=== PATIENT | female | born 1955 | race Caucasian/White ===

== ENCOUNTER → 2016-07-27 | Outpatient (CLI) | payer OTHER ==
--- NOTE | 2016-07-27 16:42 | DX ---
PA and Lateral Chest Indication: Fever Comparison: 2 view chest dated June 24, 2012 Findings: Lungs remain well aerated and clear. No pulmonary nodule, consolidation or effusion. The he art size is normal. Mild degenerative disk disease is unchanged. Impression: Clear lungs. No pneumonia.
== END ==
LOC: BMCIMAGING 15:12
PROVIDERS: ATTEND Physician Assistant Medical
DX: R50.9 Fever, unspecified (principal)

== ENCOUNTER 2016-09-15 13:40 | Inpatient (IN) | payer OTHER ==
--- NOTE | 2016-09-15 14:19 | EDPHY ---
H & P Time Seen by Provider: 09/15/16 14:12 HPI/ROS: Chief complaint. Foot infection HPI. A 61-year-old female with 10 year history of insulin-dependent diabetes has had infection to the bottom of the right foot for several weeks but over the past week it has gotten quite a bit worse. Maybe low-grade fever. Hurts to walk. It was initially a callus that got infected and now it has gotten quite a bit deeper. She still has seen Infectious Disease who would like an MRI admission. ROS Constitutional. Fever Eyes. no problems with vision ENT. no sore throat, no nasal drainage Cardiovascular. no chest pain Respiratory. no shortness of breath, no cough Abdominal. no abdominal pain, no nausea/vomiting, no diarrhea . no problems urinating MS. no calf pain/swelling, no neck/back pain, no joint pain Skin. Ulceration to the bottom of the great toe and arch of the right foot. Lymph. no swollen glands Neuro. no headache, no dizziness, no difficulty walking or with speech Past Medical/Surgical History: Past medical history significant for diabetes and asthma and hypertension Social History: , nonsmoker, no alcohol Smoking Status: Former smoker Physical Exam: General Appearance: Alert female mild distress vital signs stable. Afebrile Eyes: Pupils equal and round no pallor or injection. ENT, Mouth: Mucous membranes are moist. Respiratory: There are no retractions, lungs are clear to auscultation. Cardiovascular: Regular rate and rhythm. Gastrointestinal: Abdomen is soft and nontender, no masses, bowel sounds normal. Neurological: Awake and alert, sensory and motor exams grossly normal. Skin: Warm and dry, no rashes. Musculoskeletal: Neck is supple nontender. Extremities ulcerated, necrotic smelling lesion under the right great toe and to the plantar surface of the right foot. The great toe is quite erythematous. No obvious lymphangitis Psychiatric: Patient is oriented X 3, there is no agitation. Constitutional: Initial Vital Signs Temperature (C) 36.8 C 09/15/16 13:55 Heart Rate 80 09/15/16 13:55 Respiratory Rate 16 09/15/16 13:55 Blood Pressure 154/70 H 09/15/16 13:55 O2 Sat (%) 97 09/15/16 13:55 O2 Delivery Mode Room Air Allergies/Adverse Reactions: linezolid [From Zyvox] Allergy (Verified 03/12/10 12:45) RBC COUNT GOES DOWN lisinopril Allergy (Verified 09/15/16 13:59) Other-Enter Comments Home Medications: Medication Instructions Recorded Albuterol Sulfate [Albuterol 1 - 2 puffs IH Q4H 03/20/15 Inhaler Hfa] Folic Acid [Folic Acid 1 MG (*)] 1 mg PO DAILY 03/20/15 Glimepiride [Amaryl 2 MG (*)] 2 mg PO DAILY 03/20/15 Herbals/Supplements -Info Only 1 ea PO DAILY 03/20/15 Omeprazole [Prilosec 20 mg] 20 mg PO DAILY 03/20/15 Immun Glob G (IgG)/Gly/Iga 50+ 100 gm IV .Q3WKS 03/21/15 [Gamunex-C 10 Gram/100 ml Vial] Insulin Glargine [Lantus 100 55 units SC DAILY #1 btl 04/05/15 UNITS/ML (*)] Syringe [Syringe, Insulin] 90 syr SQ ACHS #90 ea 04/05/15 Bp Med 09/15/16 Medical Decision Making Procedures: Cultures obtained IV normal saline. Unasyn 3 g intravenously was given MRI ordered ED Course/Re-evaluation: I discussed the laboratory findings with the patient. She is already aware of the recommendation for admission. MRI result is still pending I consulted and discussed case with Dr. Osvaldo Lang, hospitalist, who agrees to the admission Differential Diagnosis: Cellulitis, lymphangitis, osteomyelitis in the patient with diabetes and foot ulcer - Data Points Laboratory Results: Laboratory Results 09/15/16 14:41 09/15/16 14:41 09/15/16 09/15/16 09/15/16 14:41 14:41 14:41 WBC 10.63 10^3/uL H 10^3/uL (3.80-9.50) RBC 3.82 10^6/uL L 10^6/uL (4.18-5.33) Hgb 10.9 g/dL L g/dL (12.6-16.3) Hct 32.5 % L % (38.0-47.0) MCV 85.1 fL fL (81.5-99.8) MCH 28.5 pg pg (27.9-34.1) MCHC 33.5 g/dL g/dL (32.4-36.7) RDW 14.6 % % (11.5-15.2) Plt Count 172 10^3/uL 10^3/uL (150-400) MPV 10.4 fL fL (8.7-11.7) Neut % (Auto) 70.6 % % (39.3-74.2) Lymph % (Auto) 20.3 % % (15.0-45.0) [place] % (Auto) 5.6 % % (4.5-13.0) Eos % (Auto) 2.1 % % (0.6-7.6) Baso % (Auto) 0.5 % % (0.3-1.7) Nucleat RBC Rel Count 0.0 % % (0.0-0.2) Absolute Neuts (auto) 7.51 10^3/uL H 10^3/uL (1.70-6.50) Absolute Lymphs (auto) 2.16 10^3/uL 10^3/uL (1.00-3.00) Absolute Monos (auto) 0.59 10^3/uL 10^3/uL (0.30-0.80) Absolute Eos (auto) 0.22 10^3/uL 10^3/uL (0.03-0.40) Absolute Basos (auto) 0.05 10^3/uL 10^3/uL (0.02-0.10) Absolute Nucleated RBC 0.00 10^3/uL 10^3/uL (0-0.01) Immature Gran % 0.9 % % (0.0-1.1) Immature Gran # 0.10 10^3/uL 10^3/uL (0.00-0.10) ESR 105 MM/HR H MM/HR (0-30) PT 14.4 SEC SEC (12.0-15.0) INR 1.13 (0.83-1.16) APTT 25.1 SEC SEC (23.0-38.0) VBG Lactic Acid Sodium 135 mEq/L mEq/L (134-144) Potassium 4.5 mEq/L mEq/L (3.5-5.2) Chloride 102 mEq/L mEq/L (97-110) Carbon Dioxide 21 mEq/l L mEq/l (22-31) Anion Gap 12 mEq/L mEq/L (8-16) BUN 18 mg/dL mg/dL (7-23) Creatinine 0.9 mg/dL mg/dL (0.6-1.0) Estimated GFR > 60 Glucose 299 mg/dL H mg/dL (70-100) Calcium 10.7 mg/dL H mg/dL (8.5-10.4) Phosphorus Pending Total Bilirubin 2.3 mg/dL H mg/dL (0.1-1.4) Conjugated Bilirubin Pending Unconjugated Bilirubin Pending C-Reactive Protein 30.0 mg/L H mg/L (<10.0) 09/15/16 14:41 WBC RBC Hgb Hct MCV MCH MCHC RDW Plt Count MPV Neut % (Auto) Lymph % (Auto) [place] % (Auto) Eos % (Auto) Baso % (Auto) Nucleat RBC Rel Count Absolute Neuts (auto) Absolute Lymphs (auto) Absolute Monos (auto) Absolute Eos (auto) Absolute Basos (auto) Absolute Nucleated RBC Immature Gran % Immature Gran # ESR PT INR APTT VBG Lactic Acid 1.8 mmol/L mmol/L (0.7-2.1) Sodium Potassium Chloride Carbon Dioxide Anion Gap BUN Creatinine Estimated GFR Glucose Calcium Phosphorus Total Bilirubin Conjugated Bilirubin Unconjugated Bilirubin C-Reactive Protein Departure - Departure Disposition: Foottnlls Inpatient Acute Clinical Impression: Osteomyelitis Qualifiers: Osteomyelitis type: unspecified type Osteomyelitis location: foot Laterality: right Qualified Code(s): M86.9 - Osteomyelitis, unspecified Condition: Fair Referrals: Eliana Fowler PA [Primary Care Provider] - As per Instructions
[2016-09-15] MEDS ORDERED: AMPICILLIN/SULBACTAM 3 GM in NS 100 ML IV ONE (14:42)
[2016-09-15 14:52] LABS: % IMMATURE GRANULYOCYTES 0.9 % (0.0-1.1); ADD DIFF? NO; ADD MORPH? NO; ADD SCAN? NO; ATYPICAL LYMPHOCYTE FLAG 20 (0-99); FRAGMENT RBC FLAG 0 (0-99); HEMATOCRIT 32.5 % (38.0-47.0); HEMOGLOBIN 10.9 g/dL (12.6-16.3); LEFT SHIFT FLG 0 (0-99); LIPEMIA HEMOLYSIS FLAG 80 (0-99); MEAN CELL HEMOGLOBIN 28.5 pg (27.9-34.1); MEAN CELL HEMOGLOBIN CONCENTR. 33.5 g/dL (32.4-36.7); MEAN CELL VOLUME 85.1 fL (81.5-99.8); MEAN PLATELET VOLUME 10.4 fL (8.7-11.7); PLATELET CLUMPS FLAG 10 (0-99); PLATELET COUNT 172 10^3/uL (150-400); RED BLOOD CELL COUNT 3.82 10^6/uL (4.18-5.33); RED CELL DISTRIBUTION WIDTH 14.6 % (11.5-15.2)
[2016-09-15 15:04] LABS: INR 1.13 (0.83-1.16); PROTIME(PATIENT) 14.4 SEC (12.0-15.0)
[2016-09-15 15:05] LABS: APTT 25.1 SEC (23.0-38.0)
[2016-09-15 15:18] LABS: ANION GAP 12 mEq/L (8-16); BILIRUBIN,TOTAL 2.3 mg/dL (0.1-1.4); CALCIUM 10.7 mg/dL (8.5-10.4); CARBON DIOXIDE 21 mEq/l (22-31); CHLORIDE 102 mEq/L (97-110); CREATININE 0.9 mg/dL (0.6-1.0); GLOMERULAR FILTRATION RATE > 60; GLUCOSE 299 mg/dL (70-100); POTASSIUM 4.5 mEq/L (3.5-5.2); SODIUM 135 mEq/L (134-144)
[2016-09-15 15:20] LABS: SEDIMENTATION RATE 105 MM/HR (0-30)
[2016-09-15 15:37] LABS: BILIRUBIN-CONJUGATED 0.7 mg/dL (0.0-0.5); BILIRUBIN-UNCONJUGATED 1.6 mg/dL (0.0-1.1)
--- NOTE | 2016-09-15 16:15 | PCMIDPN ---
Assessment/Plan: # Acute R Diabetic foot infection with wound of 2nd MTP tracking 4 cm, wound on dorsum of foot, several other wounds on 2nd toe all with associated cellulitis of 2nd toe + dorsum of foot and swelling up to ankle. Concern for underlying OM , myositis. No H/o MRSA. --Wound cx taken by me in clinic --MRI --blood cultures --Unasyn 3gm IV q6h to cover SA, strep, some GNR and anaerobes. No h/o MRSA. Duration of therapy unknown awaiting further info. --Dr. Pastrana consulted. 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 Objective: Vital Signs Temp Pulse Resp BP Pulse Ox 36.8 C 80 16 154/70 H 97 09/15/16 13:55 09/15/16 13:55 09/15/16 13:55 09/15/16 13:55 09/15/16 13:55 ESR 105 MM/HR (0-30) H 09/15/16 14:41 C-Reactive Protein 30.0 mg/L (<10.0) H 09/15/16 14:41 ICD10 Worksheet Patient Problems: Problems Problem Status Onset Osteomyelitis Acute Acute kidney injury Acute Diabetes mellitus Acute Hypogammaglobulinemia Acute Hyponatremia Acute Invasive fungal sinusitis Acute Mucormycosis rhinosinusitis Acute Sinusitis Acute
[2016-09-15] MEDS ORDERED: GADOBUTROL 10 ML VIAL IVP ONE (16:36)
[2016-09-15] MEDS ORDERED: ALTEPLASE 2 MG VIAL IVP PRN ×2 (18:16→18:20)
[2016-09-15 19:21] LABS: HEMOGLOBIN A1C 6.9 % (4.0-6.0)
[2016-09-15] MEDS ORDERED: BUPIVACAINE 0.5% 30 ML SDV ONE (20:12)
[2016-09-15] MEDS ORDERED: PROPOFOL/EMULSION 500 MG/50 ML BOTTLE IV ONE (20:19)
[2016-09-15] MEDS ORDERED: fentaNYL 100 MCG/2 ML INJ ONE ×3 (20:20→21:51)
[2016-09-15] MEDS ORDERED: MIDAZOLAM 2 MG/2 ML VIAL ONE (20:20)
--- NOTE | 2016-09-15 21:04 | GCON ---
[f rep st] CONSULTATION DATE OF CONSULTATION: 09/15/2016 REQUESTING PHYSICIAN: Lorri Harper MD. CHIEF COMPLAINT: Osteomyelitis right foot. HISTORY OF PRESENT ILLNESS: The patient is a 61-year-old woman who has had a wound on her foot for which she has been evaluated. However, over the past 4 or 5 days it has become progressively worse until today when there was massive erythema and purulence from the wound. She had an MRI obtained w the [facility] showed osteomyelitis of the 2nd metatarsal as well as probable 3rd metatarsal. PAST MEDICAL HISTORY: 1. Insulin-dependent diabetes mellitus. 2. 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 3. History of rhinosinusitis. 4. Acute kidney injury. 5. Hyperparathyroidism. 6. Hypertension. 7. Hyperlipidemia. 8. Gastroesophageal reflux disease. PAST SURGICAL HISTORY: Sinus surgery x2, foot surgery x4, hysterectomy, exploratory laparotomy, lef t foot surgery, lung biopsy MEDICATIONS: Home medications have not yet been reconciled. ALLERGIES: Linezolid, Lisinopril. SOCIAL HISTORY: She does not use tobacco, alcohol, or drugs. FAMILY HISTORY: Significant for diabetes and renal disease. REVIEW OF SYSTEMS: 10-point review of systems was otherwise negative. PHYSICAL EXAM: VITAL SIGNS: 36.8, 87, 128/58, 20, 98% on room air. GENERAL: Pleasant, well-arvind shed, well-groomed, woman sitting up in bed. HEENT: Normocephalic. No gross hearing deficits. Mu cous membranes moist. Pupils equal and round. No scleral icterus. LUNGS: Clear to auscultation b ilaterally. No increased work of breathing. CARDIAC: Systolic murmur. She does have a 2+ femoral pulse. SKIN: There is an obvious wound to the plantar surface of her right foot with an obvious i nfection of her 2nd toe. Her leg is edematous to the mid calf. I cannot palpate a pulse due to the edema over the dorsum of her foot. RESULTS REVIEWED: I personally reviewed the results of her MRI. Her great toe is absent. She has osteomyelitis of the 2nd and 3rd metatarsals. IMPRESSION: The patient is a 61-year-old woman with osteomyelitis of the 2nd and 3rd metatarsal. I will take her to the operating room for transmetatarsal amputation. We did talk about a gastroc rel ease. The risks and benefits, including, but not limited to, continued infection, bleeding, need fo r additional procedures, possible wound VAC, and prolonged antibiotics, were all discussed. She had her questions answered to her satisfaction and signed the informed consent. /[id number]/MODL
--- NOTE | 2016-09-15 21:40 | POSTOPPROG ---
Post Op Note Date of Operation: 09/15/16 Surgeon: Eliana Pastrana Anesthesiologist: casey Anesthesia: GET(General Endotracheal) Pre-op Diagnosis: right foot osteomylitis Post-op Diagnosis: same Indication: 61 yo with osteomylitis Procedure: right gastrot recession, tma right foot Inf/Abcess present in the surg proc area at time of surgery?: Yes Depth: Deep Incisional (Fascial) EBL: 100-500 Drains: Wound Vac Specimen(s): forefoot
[2016-09-15] MEDS ORDERED: HYDROmorphONE/DILAUDID 1 MG/ML SYR ONE (22:14)
[2016-09-15] MEDS: AMPICILLIN/SULBACTAM 3 GM in NS 100 ML IV SCH (22:57)
[2016-09-15] MEDS ORDERED: NS BOLUS 1000 ML (Wide open) IV ONE (23:00)
[2016-09-16] MEDS: HYDROCODONE/APAP 5/325 TAB PO PRN ×2 (00:03→08:28)
[2016-09-16] MEDS ORDERED: ALBUTEROL 3 ML DEYVIAL IH PRN (00:11)
[2016-09-16] MEDS ORDERED: ACETAMINOPHEN 325 MG TAB PO PRN (00:11)
[2016-09-16] MEDS ORDERED: ONDANSETRON DISINTEGRATING 4 MG TAB PO PRN (00:11)
[2016-09-16] MEDS ORDERED: ONDANSETRON 4 MG/2 ML VIAL IVP PRN (00:11)
[2016-09-16] MEDS ORDERED: FLUTICASONE/SALMETER 250/50MCG DISKUS IH PRN (00:13)
[2016-09-16] MEDS ORDERED: D50W 25 GM/50 ML SYR IVP PRN (00:47)
[2016-09-16] MEDS: AMPICILLIN/SULBACTAM 3 GM in NS 100 ML IV SCH ×4 (02:32→20:24)
--- NOTE | 2016-09-16 02:32 | PDGENHP ---
History and Physical - Chief Complaint R foot pain - History of Present Illness Patient was seen and evaluated on 09/15/2016. Patient is a 61-year-old female with dm 2 on insulin, complicated by peripheral neuropathy and multiple infections of her feet, hypertension, CVID, asthma who presents to the ED with acute on chronic R foot edema and erythema. patient reports that a callus has been present on the bottom of her right foot for several weeks, however about 3 or 4 days ago her foot became acutely swollen and edematous. Patient does not have significant sensation in her foot, so was not overly painful, but she was having difficulty walking on it. In addition she reported subjective chills, without obvious fever. She was evaluated by her ID doctor Dr. Harper, and was directed to the ED for evaluation for osteomyelitis. Patient denies any recent travel, chest pain, palpitations, shortness of breath, cough, abdominal pain, nausea, vomiting, diarrhea or dysuria. She has had previous right great toe amputation due to infection. On arrival to the ED patient was afebrile hemodynamically stable. Labs revealed mild leukocytosis, hyperglycemia, normal BMP. MRI of the foot revealed osteomyelitis involving the 2nd/3rd metatarsal and phalanges of the 2nd toe with infiltrating abscess. surgery was consulted and patient was taken to the OR for debridement of her foot. On my evaluation patient is postop, reports no significant pain to her foot. ID has been consulted and patient was cultured and initiated on Unasyn. History Information - Allergies/Home Medication List Allergies/Adverse Reactions: linezolid [From Zyvox] Allergy (Verified 03/12/10 12:45) RBC COUNT GOES DOWN lisinopril Allergy (Verified 09/15/16 13:59) Other-Enter Comments Home Medications: Albuterol Sulfate [Albuterol Inhaler Hfa] 1 - 2 puffs IH Q4H 03/20/15 [Last Taken 09/15/16] Folic Acid [Folic Acid 1 MG (*)] 1 mg PO DAILY 03/20/15 [Last Taken 09/15/16] Glimepiride [Amaryl 2 MG (*)] 2 mg PO DAILY 03/20/15 [Last Taken 09/14/16] Herbals/Supplements -Info Only 1 ea PO DAILY 03/20/15 [Last Taken Unknown] Omeprazole [Prilosec 20 mg] 20 mg PO DAILY 03/20/15 [Last Taken 09/15/16] Immun Glob G (IgG)/Gly/Iga 50+ [Gamunex-C 10 Gram/100 ml Vial] 60 gm IV .Q3WKS 03/21/15 [Last Taken 09/06/16] Fluticasone/Salmeter 250/50Mcg [Advair 250/50 (*)] 1 puffs IH BID PRN 09/15/16 [ Last Taken 09/08/16] Losartan/Hydrochlorothiazide [Hyzaar 100-12.5 Tablet] 1 each PO DAILY 09/15/16 [ Last Taken 09/15/16] I have personally reviewed and updated: family history, medical history, social history, surgical history - Past Medical History Additional medical history: dm 2 on insulin, complicated by peripheral neuropathy and multiple infections of her feet, hypertension, CVID, asthma, Chronic anemia, hypoparathyroidism, h/o rhizopus infection of R maxillary sinus - Surgical History Additional surgical history: right great toe amputation, transmetatarsal amputation, multiple debridements of foot wounds, sinus debridement, tonsillectomy, hysterectomy - Family History Positive for: diabetes type II - Social History Smoking Status: Former smoker (quit >30 years ago) Alcohol Use: None Drug Use: None Additional social history: Patient lives with her , 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 Review of Systems ROS: 10pt was reviewed & negative except for what was stated in HPI & below Physical Exam Temp Pulse Resp BP Pulse Ox 36.6 C 82 16 102/51 L 97 09/16/16 00:39 09/16/16 00:39 09/16/16 00:39 09/16/16 00:39 09/16/16 00:39 O2 (L/minute) 2 Constitutional: no apparent distress, appears nourished, not in pain Eyes: PERRL, anicteric sclera, EOMI Ears, Nose, Mouth, Throat: moist mucous membranes, hearing normal, ears appear normal, no oral mucosal ulcers Cardiovascular: regular rate and rhythym, no murmur, rub, or gallop, edema (of RLE 1-2+), No JVD Peripheral Pulses: 2+: dorsalis-pedis (L) Respiratory: no respiratory distress, no rales or rhonchi, clear to auscultation Gastrointestinal: normoactive bowel sounds, soft, non-tender abdomen, no palpable masses, No guarding, No rebound, No distension Genitourinary: no bladder fullness, no bladder tenderness Skin: other (R foot in wound vac with surrounding warmth and edema; R upper extremity PICC) Musculoskeletal: full muscle strength, no muscle tenderness, normal joint ROM, no joint effusions Neurologic: AAOx3, sensation intact bilaterally, CN II-XII Intact, No weakness, No numbness Psychiatric: interacting appropriately, not anxious, not encephalopathic, thought process linear Lab Data & Imaging Review 09/16/16 06:30 09/16/16 05:10 WBC 10.63 10^3/uL (3.80-9.50) H 09/15/16 14:41 RBC 3.82 10^6/uL (4.18-5.33) L 09/15/16 14:41 Hgb 10.9 g/dL (12.6-16.3) L 09/15/16 14:41 Hct 32.5 % (38.0-47.0) L 09/15/16 14:41 MCV 85.1 fL (81.5-99.8) 09/15/16 14:41 MCH 28.5 pg (27.9-34.1) 09/15/16 14:41 MCHC 33.5 g/dL (32.4-36.7) 09/15/16 14:41 RDW 14.6 % (11.5-15.2) 09/15/16 14:41 Plt Count 172 10^3/uL (150-400) 09/15/16 14:41 MPV 10.4 fL (8.7-11.7) 09/15/16 14:41 Neut % (Auto) 70.6 % (39.3-74.2) 09/15/16 14:41 Lymph % (Auto) 20.3 % (15.0-45.0) 09/15/16 14:41 [place] % (Auto) 5.6 % (4.5-13.0) 09/15/16 14:41 Eos % (Auto) 2.1 % (0.6-7.6) 09/15/16 14:41 Baso % (Auto) 0.5 % (0.3-1.7) 09/15/16 14:41 Nucleat RBC Rel Count 0.0 % (0.0-0.2) 09/15/16 14:41 Absolute Neuts (auto) 7.51 10^3/uL (1.70-6.50) H 09/15/16 14:41 Absolute Lymphs (auto) 2.16 10^3/uL (1.00-3.00) 09/15/16 14:41 Absolute Monos (auto) 0.59 10^3/uL (0.30-0.80) 09/15/16 14:41 Absolute Eos (auto) 0.22 10^3/uL (0.03-0.40) 09/15/16 14:41 Absolute Basos (auto) 0.05 10^3/uL (0.02-0.10) 09/15/16 14:41 Absolute Nucleated RBC 0.00 10^3/uL (0-0.01) 09/15/16 14:41 Immature Gran % 0.9 % (0.0-1.1) 09/15/16 14:41 Immature Gran # 0.10 10^3/uL (0.00-0.10) 09/15/16 14:41 ESR 105 MM/HR (0-30) H 09/15/16 14:41 PT 14.4 SEC (12.0-15.0) 09/15/16 14:41 INR 1.13 (0.83-1.16) 09/15/16 14:41 APTT 25.1 SEC (23.0-38.0) 09/15/16 14:41 VBG Lactic Acid 1.8 mmol/L (0.7-2.1) 09/15/16 14:41 Sodium 135 mEq/L (134-144) 09/15/16 14:41 Potassium 4.5 mEq/L (3.5-5.2) 09/15/16 14:41 Chloride 102 mEq/L (97-110) 09/15/16 14:41 Carbon Dioxide 21 mEq/l (22-31) L 09/15/16 14:41 Anion Gap 12 mEq/L (8-16) 09/15/16 14:41 BUN 18 mg/dL (7-23) 09/15/16 14:41 Creatinine 0.9 mg/dL (0.6-1.0) 09/15/16 14:41 Estimated GFR > 60 09/15/16 14:41 Glucose 299 mg/dL (70-100) H 09/15/16 14:41 Hemoglobin A1c 6.9 % (4.0-6.0) H D 09/15/16 14:41 Estim Average Glucose 151 mg/dL (68-126) H 09/15/16 14:41 Calcium 10.7 mg/dL (8.5-10.4) H 09/15/16 14:41 Phosphorus 2.3 mg/dL (2.5-4.5) L 09/15/16 14:41 Total Bilirubin 2.3 mg/dL (0.1-1.4) H 09/15/16 14:41 Conjugated Bilirubin 0.7 mg/dL (0.0-0.5) H 09/15/16 14:41 Unconjugated Bilirubin 1.6 mg/dL (0.0-1.1) H 09/15/16 14:41 C-Reactive Protein 30.0 mg/L (<10.0) H 09/15/16 14:41 Visualized and Interpreted imaging results: Yes Interpretation: MRI R Lower extremity: osteomyelitis involving the 2nd/3rd metatarsal and phalanges of the 2nd toe with infiltrating abscess Assessment & Plan Assessment: patient is a 61-year-old female with a history of DM 2, on insulin, complicated by multiple foot infections with previous right great toe amputation who presents to the ED with complaint of increasing warmth, edema and erythema of her right foot. MRI reveals acute osteomyelitis of the 2nd and 3rd metatarsals with as well as infiltrating abscess. Patient is now status post surgical debridement and has been initiated on antibiotic therapy. Osteomyelitis (Acute) Plan: # acute osteomyelitis Patient's right foot wound has been complicated by acute osteomyelitis of the 2nd and 3rd metatarsal with abscess formation tracking proximally 4 cm. Labs and presenting VS do not reveal evidence of sepsis. Now s/p surgical debridement. Will f/u wound culture taken in the outpatient setting, as well as blood cultures obtained in the ED. ID recommendations appreciated. WIll cont Unasyn 3 q6h and f/u culture results. # hyperglycemia, insulin-dependent DM2 Blood glucose on admission BMP is elevated at 200. Will place on sliding scale coverage and continue patient's home lantus. HbA1C is 6.9%. # CVID IgG level was checked, result is pending. Will assess need for additional IgG in setting of acute infection depending on level. # chronic hypertension BP slightly low on presentation, in setting of acute infection/surgical procedure. Will monitor BP and restart home meds as needed. # chronic anemia H/H appear to be at patient's previous baseline. Will cont to monitor. # asthma Respiratory status stable. WIll provide neb prn # hyperparathyroidism Ca is elevated and Phos is low, consistent with patient's diagnosis of hyperparathyroidism. Will cont to monitor levels and treat if significant deranged. # dispo: admit to inpatient service for likely > 2 [place] stay # gen: diabetic diet DVT ppx: lovenox Full code
[2016-09-16 05:32] LABS: % IMMATURE GRANULYOCYTES 0.9 % (0.0-1.1); ABSOLUTE IMMATURE GRANULOCYTES 0.09 10^3/uL (0.00-0.10); ADD DIFF? NO; ADD MORPH? NO; ADD SCAN? NO; ATYPICAL LYMPHOCYTE FLAG 10 (0-99); FRAGMENT RBC FLAG 0 (0-99); HEMATOCRIT 22.4 % (38.0-47.0); HEMOGLOBIN 7.5 g/dL (12.6-16.3); LEFT SHIFT FLG 0 (0-99); LIPEMIA HEMOLYSIS FLAG 80 (0-99); MEAN CELL HEMOGLOBIN 28.3 pg (27.9-34.1); MEAN CELL HEMOGLOBIN CONCENTR. 33.5 g/dL (32.4-36.7); MEAN CELL VOLUME 84.5 fL (81.5-99.8); MEAN PLATELET VOLUME 9.9 fL (8.7-11.7); PLATELET CLUMPS FLAG 10 (0-99); PLATELET COUNT 151 10^3/uL (150-400); RED BLOOD CELL COUNT 2.65 10^6/uL (4.18-5.33); RED CELL DISTRIBUTION WIDTH 15.1 % (11.5-15.2)
[2016-09-16 05:53] LABS: ALANINE AMINOTRANSFERASE 30 IU/L (9-52); ALKALINE PHOSPHATASE 161 IU/L (38-126); ANION GAP 5 mEq/L (8-16); ASPARTATE AMINOTRANSFERASE 20 IU/L (14-46); BILIRUBIN,TOTAL 1.8 mg/dL (0.1-1.4); CARBON DIOXIDE 23 mEq/l (22-31); CHLORIDE 107 mEq/L (97-110); CREATININE 0.9 mg/dL (0.6-1.0); GLOMERULAR FILTRATION RATE > 60; GLUCOSE 130 mg/dL (70-100); POTASSIUM 3.9 mEq/L (3.5-5.2); SODIUM 135 mEq/L (134-144)
[2016-09-16 05:58] LABS: MAGNESIUM 0.9 mg/dL (1.6-2.3)
[2016-09-16 07:06] LABS: % IMMATURE GRANULYOCYTES 0.8 % (0.0-1.1); ABSOLUTE IMMATURE GRANULOCYTES 0.07 10^3/uL (0.00-0.10); ADD DIFF? NO; ADD MORPH? NO; ADD SCAN? NO; ATYPICAL LYMPHOCYTE FLAG 10 (0-99); FRAGMENT RBC FLAG 0 (0-99); HEMATOCRIT 22.5 % (38.0-47.0); HEMOGLOBIN 7.4 g/dL (12.6-16.3); LEFT SHIFT FLG 0 (0-99); LIPEMIA HEMOLYSIS FLAG 80 (0-99); MEAN CELL HEMOGLOBIN 28.4 pg (27.9-34.1); MEAN CELL HEMOGLOBIN CONCENTR. 32.9 g/dL (32.4-36.7); MEAN CELL VOLUME 86.2 fL (81.5-99.8); MEAN PLATELET VOLUME 10.2 fL (8.7-11.7); PLATELET CLUMPS FLAG 0 (0-99); PLATELET COUNT 137 10^3/uL (150-400); RED BLOOD CELL COUNT 2.61 10^6/uL (4.18-5.33)
--- NOTE | 2016-09-16 07:32 | GOP ---
[f rep st] OPERATIVE REPORT DATE OF OPERATION: 09/15/2016 SURGEON: Eliana Pastrana MD ANESTHESIA: Norberto Stevenson MD/General. PREOPERATIVE DIAGNOSIS: Osteomyelitis, right 2nd metatarsal and 3rd metatarsal , and right gastrocnemius contracture. POSTOPERATIVE DIAGNOSIS: Osteomyelitis, right 2nd metatarsal and 3rd metatarsal , and right gastrocnemius contracture. PROCEDURE PERFORMED: 1. Gastrocnemius recession. 2. Transmetatarsal amputation right foot. FINDINGS: She had excellent arterial flow from both the inner digital arteries as well as from the subcutaneous tissues. SPECIMENS: Pathology. ESTIMATED BLOOD LOSS: 500 cc. DESCRIPTION OF PROCEDURE: The patient is a 61-year-old woman, who has a history of immune deficiency, insulin-dependent diabetes, has a wound on her foot that progressed rapidly over the past several days. She had an MRI that showed osteomyelitis. She already had an amputation of her right great toe. The patient was brought into the operating room, placed supine on the table, and general anesthesia was administered. Her right leg was prepped and draped in the usual sterile fashion. I identified the space on the medial aspect of her right leg by her semitendinosus and the gastrocnemius. I made a small longitudinal incision along the posteriomedial aspect of the lower leg at the level of the musculotendinous junction of the gastroc. I dissected down through the subcutaneous space. The superficial posterior compartment fascia was sharply divided in the same line as the skin inccision. The gastroc tendon was bluntly dissected , retracted with a small speculum and transected distal to susan musculotendinous junction. The fascia and subcutaneous tissues were closed with 3-0 Vicryl. Skin closed with 3-0 nylon, and a sterile dressing was applied. Next, I created a flap on the midportion of her foot to include the wound on the posterior aspect, and I dissected down through the subcutaneous tissues. She had excellent pulsatile flow from both skin, subcutaneous areas, as well as the interdigital artery. I then used the saw to perform a dissection of the foot, across the transmetatarsal. The bone was very hard. I then obtained additional samples of the 2nd, 3rd, and 4th toes, inked the proximal area. Hemostasis was achieved. I was able to close a layer of tissue over the bone. Due to the location of the posterior ulcer, I did not have enough skin to close it. I then placed a wound VAC. She was awakened in the operating room, extubated, transferred to PACU in stable condition. /[id number]/MODL MTDD
[2016-09-16] MEDS: INSULIN LISPRO 100 UNIT/ML SC SCH ×3 (08:31→18:11)
[2016-09-16] MEDS ORDERED: PROTOCOL MAGNESIUM 1 DOSE IV PRN (08:55)
[2016-09-16] MEDS ORDERED: MAGNESIUM SULF 2 GM/WATER 50 ML IV ONE ×2 (08:56→10:28)
[2016-09-16] MEDS ORDERED: LOSARTAN POTASSIUM 50 MG TAB PO SCH (09:00)
[2016-09-16] MEDS ORDERED: LOSARTAN/HCTZ 50/12.5 1 TAB PO SCH (09:00)
[2016-09-16] MEDS ORDERED: INSULIN GLARGINE 100 UNITS/ML SYRINGE SC SCH (09:00)
[2016-09-16] MEDS: FOLIC ACID 1 MG TAB PO SCH (09:25)
[2016-09-16] MEDS: PANTOPRAZOLE SODIUM 40 MG TAB PO SCH (09:25)
[2016-09-16] MEDS: INSULIN GLARGINE 100 UNITS/ML SYRINGE SC SCH (09:27)
[2016-09-16] MEDS ORDERED: ACETAMINOPHEN 325 MG TAB PO ONE (10:22)
--- NOTE | 2016-09-16 10:38 | PCMIDPN ---
Assessment/Plan: # Acute R Diabetic foot infection/cellulitis complicated by OM of 2nd and 3rd metatarsal,abscess s/p transmetatarsal amputation. Intraoperatively bone was hard. --IV antibiotics until path back ~2 weeks, PICC line already in place. Continue Unasyn for now. We will not be able to give as an outpatient due to frequent dosing. --await wound cultures to direct therapy. 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, recent reduction in total dose in April or May 2016 --Check IgG level # h/o Rhizopus R maxillary rhinosinusitis off therapy, no symptoms Meds Unasyn 3gm IV q6h , #1 Subjective: Continued throbbing pain in her right foot despite to [place] and 2 mg of Dilaudid Otherwise has no complaints Objective: Vital Signs Temp Pulse Resp BP Pulse Ox 36.5 C 77 16 93/46 L 93 09/16/16 08:23 09/16/16 08:23 09/16/16 08:23 09/16/16 08:23 09/16/16 08:23 Laboratory Results 09/16/16 06:30 09/16/16 05:10 09/15/16 09/16/16 09/17/16 05:59 05:59 05:59 Intake Total 2195 Output Total 500 Balance 1695 ESR 105 MM/HR (0-30) H 09/15/16 14:41 C-Reactive Protein 30.0 mg/L (<10.0) H 09/15/16 14:41 - Physical Exam General Appearance: alert, no apparent distress EENT: scleral icterus Respiratory: lungs clear Neck: supple Cardiac/Chest: regular rate, rhythm, systolic murmur Extremities: swelling (Ankle swelling already 30% improved), other ( Transmetatarsal amputation right foot with wound VAC in place. No residual cellulitis present. 2 to 3+ pulses on the dorsum) Skin: No rash Neuro/Psych: alert, normal mood/affect, oriented x 3 - Line/s RUE PICC Lines: No drainage, No erythema ICD10 Worksheet Patient Problems: Problems Problem Status Onset Osteomyelitis Acute Acute kidney injury Acute Diabetes mellitus Acute Hypogammaglobulinemia Acute Hyponatremia Acute Invasive fungal sinusitis Acute Mucormycosis rhinosinusitis Acute Sinusitis Acute
--- NOTE | 2016-09-16 10:41 | HOSPPROG ---
Hospitalist Progress Note Assessment/Plan: I/P # acute osteomyelitis of right foot, s/p transmetatarsal amputation on 09/15 -On Unasyn per ID -Post OP care per surgery -F/U cultures # Post Operative Anemia in a pt with chronic anemai -Transfuse 1 unit # Post Operative Hypotension in pt with hx of HTN -Transfusion per above -Hold BP meds #IDDM2 -continue current insulin regimen -HbA1C is 6.9%. # CVID IgG level was checked, result is pending. Will assess need for additional IgG in setting of acute infection depending on level. # asthma Respiratory status stable. WIll provide neb prn # hyperparathyroidism Ca is elevated and Phos is low, consistent with patient's diagnosis of hyperparathyroidism. Will cont to monitor levels and treat if significant deranged. # dispo: the pt is inpatient diabetic diet DVT ppx: lovenox Full code Subjective: Feels fatigued. Low Blood pressure. Denies CP, SOB. First encounter with this patient Objective: Vital Signs Temp Pulse Resp BP Pulse Ox 36.5 C 77 16 93/46 L 93 09/16/16 08:23 09/16/16 08:23 09/16/16 08:23 09/16/16 08:23 09/16/16 08:23 Laboratory Results 09/16/16 06:30 09/16/16 05:10 09/15/16 09/16/16 09/17/16 05:59 05:59 05:59 Intake Total 2195 Output Total 500 Balance 1695 PT 14.4 SEC (12.0-15.0) 09/15/16 14:41 INR 1.13 (0.83-1.16) 09/15/16 14:41 - Time Spent With Patient Time Spent with Patient: greater than 35 minutes Time Spent with Patient: Greater than 35 minutes spent on this patients care, greater than 50% of time spent counseling, educating, and coordinating care regarding the above mentioned plan. - Physical Exam Constitutional: no apparent distress, appears nourished, not in pain Eyes: PERRL, anicteric sclera, EOMI Ears, Nose, Mouth, Throat: moist mucous membranes, hearing normal, ears appear normal Cardiovascular: regular rate and rhythym, no murmur, rub, or gallop Respiratory: no respiratory distress, no rales or rhonchi Gastrointestinal: normoactive bowel sounds, soft, non-tender abdomen Genitourinary: no bladder fullness Skin: warm, normal color, other (right foot metatarsal amputation, wound vac in place) Musculoskeletal: generalized weakness Neurologic: AAOx3 Psychiatric: interacting appropriately, not anxious ICD10 Worksheet Patient Problems: Problems Problem Status Onset Osteomyelitis Acute Acute kidney injury Acute Diabetes mellitus Acute Hypogammaglobulinemia Acute Hyponatremia Acute Invasive fungal sinusitis Acute Mucormycosis rhinosinusitis Acute Sinusitis Acute
[2016-09-16] MEDS: ENOXAPARIN 40 MG/0.4 ML SYR SC SCH (11:26)
--- NOTE | 2016-09-16 14:17 | SOAPPROG ---
SOAP Progress Note Assessment/Plan: Assessment: 61yo F s/p R TMA for osteomyelitis Path and micro pending IV Unasyn x 2weeks per ID Acute blood loss anemia - significant blood loss during surgery Wound vac- keep in place, we will change on Monday 09/18 Erythema and edema of RLE significantly improved after surgery Heel touch only RLE Physical therapy Hospitalists managing comorbidities. Seen with Dr. Pastrana S: no complaints this morning. Pain controlled O: laying in bed, comfortable, NAD No increased wob RLE without erythema or edema. Wound vac to suction, dressing intact Plan: 09/16/16 14:15 09/16/16 14:18 Objective: Vital Signs Temp Pulse Resp BP Pulse Ox 36.5 C 78 14 95/45 L 91 L 09/16/16 11:25 09/16/16 11:25 09/16/16 11:25 09/16/16 11:25 09/16/16 11:25 Laboratory Results 09/16/16 06:30 09/16/16 05:10 09/15/16 09/16/16 09/17/16 05:59 05:59 05:59 Intake Total 2195 500 Output Total 500 Balance 1695 500 PT 14.4 SEC (12.0-15.0) 09/15/16 14:41 INR 1.13 (0.83-1.16) 09/15/16 14:41 ICD10 Worksheet Patient Problems: Problems Problem Status Onset Osteomyelitis Acute Acute kidney injury Acute Diabetes mellitus Acute Hypogammaglobulinemia Acute Hyponatremia Acute Invasive fungal sinusitis Acute Mucormycosis rhinosinusitis Acute Sinusitis Acute
[2016-09-16] MEDS ORDERED: ALBUTEROL 60 PUFFS/8 GM MDI IH PRN (16:19)
[2016-09-16] MEDS ORDERED: MAGNESIUM SULF 2 GM/WATER 50 ML BAG IV ONE (16:57)
[2016-09-17] MEDS: AMPICILLIN/SULBACTAM 3 GM in NS 100 ML IV SCH ×2 (03:55→08:51)
[2016-09-17 06:02] LABS: % IMMATURE GRANULYOCYTES 0.7 % (0.0-1.1); ABSOLUTE IMMATURE GRANULOCYTES 0.07 10^3/uL (0.00-0.10); ADD DIFF? NO; ADD MORPH? NO; ADD SCAN? NO; ATYPICAL LYMPHOCYTE FLAG 0 (0-99); FRAGMENT RBC FLAG 0 (0-99); HEMATOCRIT 23.9 % (38.0-47.0); LEFT SHIFT FLG 0 (0-99); LIPEMIA HEMOLYSIS FLAG 80 (0-99); MEAN CELL HEMOGLOBIN 28.3 pg (27.9-34.1); MEAN CELL HEMOGLOBIN CONCENTR. 33.5 g/dL (32.4-36.7); MEAN CELL VOLUME 84.5 fL (81.5-99.8); MEAN PLATELET VOLUME 9.9 fL (8.7-11.7); PLATELET CLUMPS FLAG 0 (0-99); PLATELET COUNT 155 10^3/uL (150-400); RED BLOOD CELL COUNT 2.83 10^6/uL (4.18-5.33); RED CELL DISTRIBUTION WIDTH 15.9 % (11.5-15.2)
[2016-09-17 06:11] LABS: ANION GAP 6 mEq/L (8-16); CARBON DIOXIDE 21 mEq/l (22-31); CHLORIDE 109 mEq/L (97-110); CREATININE 0.9 mg/dL (0.6-1.0); GLOMERULAR FILTRATION RATE > 60; GLUCOSE 73 mg/dL (70-100); MAGNESIUM 1.7 mg/dL (1.6-2.3); POTASSIUM 3.7 mEq/L (3.5-5.2); SODIUM 136 mEq/L (134-144)
[2016-09-17] MEDS: ENOXAPARIN 40 MG/0.4 ML SYR SC SCH (08:49)
[2016-09-17] MEDS: INSULIN GLARGINE 100 UNITS/ML SYRINGE SC SCH (08:50)
[2016-09-17] MEDS: PANTOPRAZOLE SODIUM 40 MG TAB PO SCH (08:51)
[2016-09-17] MEDS: FOLIC ACID 1 MG TAB PO SCH (08:51)
[2016-09-17] MEDS: INSULIN LISPRO 100 UNIT/ML SC SCH ×3 (08:52→18:18)
--- NOTE | 2016-09-17 10:32 | HOSPPROG ---
Hospitalist Progress Note Assessment/Plan: 61 yo F w CVID, well controlled DM2 here w osteomyelitis acute osteomyelitis of right foot, s/p transmetatarsal amputation on 09/15 On Unasyn per ID Post OP care per surgery F/U cultures wound swab w strep and gnr; not clear if this represents true pathogen Acute Blood loss Anemia in a pt with chronic anemia Transfused 1 unit Post Operative Hypotension in pt with hx of HTN Transfusion per above Hold BP meds 09/17- still off bp meds but no longer hypotensive follow IDDM2 continue current insulin regimen HbA1C is 6.9%. inpatient sugars at goal CVID IgG level high continue regular replacement schedule asthma Respiratory status stable. WIll provide neb prn hyperparathyroidism Ca is elevated and Phos is low, consistent with patient's diagnosis of hyperparathyroidism. Will cont to monitor levels and treat if significant deranged. hypomag: on protocol; improved dispo: the pt is inpatient diabetic diet DVT ppx: lovenox Subjective: case d/w kimberly horne. pain well controlled. blood sugars at goal Objective: Vital Signs Temp Pulse Resp BP Pulse Ox 36.9 C 98 18 139/69 H 92 09/17/16 08:21 09/17/16 08:21 09/17/16 08:21 09/17/16 08:21 09/17/16 08:21 Laboratory Results 09/17/16 05:42 09/17/16 05:42 09/16/16 09/17/16 09/18/16 05:59 05:59 05:59 Intake Total 2195 2050 Output Total 500 900 Balance 1695 1150 PT 14.4 SEC (12.0-15.0) 09/15/16 14:41 INR 1.13 (0.83-1.16) 09/15/16 14:41 - Physical Exam Constitutional: no apparent distress, appears nourished Eyes: PERRL, anicteric sclera Ears, Nose, Mouth, Throat: moist mucous membranes, hearing normal Cardiovascular: regular rate and rhythym, no murmur, rub, or gallop Respiratory: no respiratory distress, no rales or rhonchi Gastrointestinal: normoactive bowel sounds, soft, non-tender abdomen Genitourinary: No mitchell in urethra Skin: warm, normal color Musculoskeletal: full muscle strength, no muscle tenderness Neurologic: AAOx3 ICD10 Worksheet Patient Problems: Problems Problem Status Onset Osteomyelitis Acute Acute kidney injury Acute Diabetes mellitus Acute Hypogammaglobulinemia Acute Hyponatremia Acute Invasive fungal sinusitis Acute Mucormycosis rhinosinusitis Acute Sinusitis Acute
[2016-09-17] MEDS ORDERED: MAGNESIUM SULF 1 GM/DEXTROSE 100 ML IV ONE (11:33)
[2016-09-17] MEDS: cefTRIAXone 2 GM in D5W 50 ML IV SCH (13:10)
--- NOTE | 2016-09-17 14:08 | PCMIDPN ---
Assessment/Plan: # Acute R Diabetic foot infection/cellulitis complicated by OM of 2nd and 3rd metatarsal,abscess s/p transmetatarsal amputation secondary to streptococcus dysgalactiae. Intraoperatively bone was hard. --2 weeks IV ceftriaxone, through 09/29/16, dc unasyn --dc tomorrow after wound vac change, ID appointment made but hopeful to coordinate care with wound care center # IDDM: HgAIC is good at 6.9 # IgG deficiency : IgG level good # h/o Rhizopus R maxillary rhinosinusitis off therapy, no symptoms Meds Unasyn 3gm IV q6h , #2 Subjective: feeling well Pain is controlled No diarrhea, no rash Objective: Vital Signs Temp Pulse Resp BP Pulse Ox 36.7 C 87 18 115/54 L 91 L 09/17/16 12:21 09/17/16 12:21 09/17/16 12:21 09/17/16 12:21 09/17/16 12:21 Laboratory Results 09/17/16 05:42 09/17/16 05:42 09/16/16 09/17/16 09/18/16 05:59 05:59 05:59 Intake Total 2195 2050 Output Total 500 900 Balance 1695 1150 ESR 105 MM/HR (0-30) H 09/15/16 14:41 C-Reactive Protein 30.0 mg/L (<10.0) H 09/15/16 14:41 - Physical Exam General Appearance: alert, no apparent distress, non-toxic EENT: pale conjunctiva, No scleral icterus Respiratory: No accessory muscle use Extremities: swelling (Slight right ankle swelling but improving), other (Wound VAC in place right foot), No erythema Neuro/Psych: alert, normal mood/affect, oriented x 3 - Time Spent With Patient Time Spent with Patient: greater than 25 minutes (Discuss plans for IV antibiotic therapy, the risk and benefits and plans for improved foot care in the long run to prevent recurrence) Time Spent with Patient: Greater than 25 minutes spent on this patients care, greater than 50% of time spent counseling, educating, and coordinating care regarding the above mentioned plan. ICD10 Worksheet Patient Problems: Problems Problem Status Onset Osteomyelitis Acute Acute kidney injury Acute Diabetes mellitus Acute Hypogammaglobulinemia Acute Hyponatremia Acute Invasive fungal sinusitis Acute Mucormycosis rhinosinusitis Acute Sinusitis Acute
--- NOTE | 2016-09-17 16:47 | PDIAF ---
- Diagnosis Diagnosis: streptococcus R foot 2nd, 3rd metatarsal OM Code Status: Full Code - Medication Management Discharge Medications: Medications to Continue on Transfer Albuterol Sulfate [Albuterol Inhaler Hfa] 1 - 2 puffs IH Q4H 03/20/15 [Last Taken 09/15/16] Folic Acid [Folic Acid 1 MG (*)] 1 mg PO DAILY 03/20/15 [Last Taken 09/15/16] Glimepiride [Amaryl 2 MG (*)] 2 mg PO DAILY 03/20/15 [Last Taken 09/14/16] Herbals/Supplements -Info Only 1 ea PO DAILY 03/20/15 [Last Taken Unknown] Omeprazole [Prilosec 20 mg] 20 mg PO DAILY 03/20/15 [Last Taken 09/15/16] Immun Glob G (IgG)/Gly/Iga 50+ [Gamunex-C 10 Gram/100 ml Vial] 60 gm IV .Q3WKS 03/21/15 [Last Taken 09/06/16] Insulin Glargine [Lantus 100 UNITS/ML (*)] 55 units SC DAILY #1 btl 04/05/15 [ Last Taken 09/15/16] Fluticasone/Salmeter 250/50Mcg [Advair 250/50 (*)] 1 puffs IH BID PRN 09/15/16 [ Last Taken 09/08/16] Losartan/Hydrochlorothiazide [Hyzaar 100-12.5 Tablet] 1 each PO DAILY 09/15/16 [ Last Taken 09/15/16] Retirement Antibiotics: ceftriaxone 2gm IV daily Retirement Antibiotic Stop Date: 09/29/16 Discharge Medications: Refer to the Discharge Home Medication list for PRN reason. PICC Care - Routine: Yes - Orders Services needed: Home Care, Registered Nurse, Physical Therapy Home Care Face to Face: I certify that this patient was under my care and that I had the required [id number] encounter meeting the encounter requirements on the discharge day. My findings support the fact that the patient is homebound as defined in CMS Chapter 7 Medicare Benefits Manual 30.1.1, The condition of the patient is such that there exists a normal inability to leave home and consequently, leaving home would require a considerable and taxing effort. - Labs/Radiology CBC Date: 09/21/16 CMP Date: 09/21/16 CRP Date: 09/21/16 Call or Fax Lab and Imaging Results to: [email or web address] [phone] - Follow Up Care Current Providers and Referrals: Lorri Harper MD [Medical Doctor] - 09/29/16 11:00 am Eliana Fowler PA [Primary Care Provider] - As per Instructions
--- NOTE | 2016-09-17 18:59 | SOAPPROG ---
SOAP Progress Note Assessment/Plan: Assessment: POD # 2 s/p transmetatarsal amputation and gastroc recession for diabetic foot ulcer with osteomylitis I will change the wound vac tomorrow Acute anemia blood loss stabilized S: Pain controlled O: Vac to suction. Less edema Plan: 09/17/16 18:58 Objective: Vital Signs Temp Pulse Resp BP Pulse Ox 37.2 C 82 18 105/46 L 95 09/17/16 16:23 09/17/16 16:23 09/17/16 16:23 09/17/16 16:23 09/17/16 16:23 Laboratory Results 09/17/16 05:42 09/17/16 05:42 09/16/16 09/17/16 09/18/16 05:59 05:59 05:59 Intake Total 2195 2050 2931 Output Total 500 900 Balance 1695 1150 2931 PT 14.4 SEC (12.0-15.0) 09/15/16 14:41 INR 1.13 (0.83-1.16) 09/15/16 14:41 ICD10 Worksheet Patient Problems: Problems Problem Status Onset Osteomyelitis Acute Acute kidney injury Acute Diabetes mellitus Acute Hypogammaglobulinemia Acute Hyponatremia Acute Invasive fungal sinusitis Acute Mucormycosis rhinosinusitis Acute Sinusitis Acute
[2016-09-18 06:12] LABS: % IMMATURE GRANULYOCYTES 0.4 % (0.0-1.1); ABSOLUTE IMMATURE GRANULOCYTES 0.03 10^3/uL (0.00-0.10); ADD DIFF? NO; ADD MORPH? NO; ADD SCAN? NO; ATYPICAL LYMPHOCYTE FLAG 20 (0-99); FRAGMENT RBC FLAG 0 (0-99); HEMATOCRIT 23.7 % (38.0-47.0); HEMOGLOBIN 7.9 g/dL (12.6-16.3); LEFT SHIFT FLG 0 (0-99); LIPEMIA HEMOLYSIS FLAG 80 (0-99); MEAN CELL HEMOGLOBIN 29.2 pg (27.9-34.1); MEAN CELL HEMOGLOBIN CONCENTR. 33.3 g/dL (32.4-36.7); MEAN CELL VOLUME 87.5 fL (81.5-99.8); MEAN PLATELET VOLUME 9.4 fL (8.7-11.7); PLATELET CLUMPS FLAG 0 (0-99); PLATELET COUNT 134 10^3/uL (150-400); RED BLOOD CELL COUNT 2.71 10^6/uL (4.18-5.33)
[2016-09-18 07:17] LABS: ANION GAP 4 mEq/L (8-16); CALCIUM 9.5 mg/dL (8.5-10.4); CARBON DIOXIDE 24 mEq/l (22-31); CHLORIDE 112 mEq/L (97-110); CREATININE 0.9 mg/dL (0.6-1.0); GLOMERULAR FILTRATION RATE > 60; GLUCOSE 87 mg/dL (70-100); MAGNESIUM 1.6 mg/dL (1.6-2.3); POTASSIUM 3.9 mEq/L (3.5-5.2); SODIUM 140 mEq/L (134-144)
[2016-09-18] MEDS: FOLIC ACID 1 MG TAB PO SCH (09:01)
[2016-09-18] MEDS: PANTOPRAZOLE SODIUM 40 MG TAB PO SCH (09:01)
[2016-09-18] MEDS: INSULIN GLARGINE 100 UNITS/ML SYRINGE SC SCH (09:01)
[2016-09-18] MEDS: ENOXAPARIN 40 MG/0.4 ML SYR SC SCH (09:01)
[2016-09-18] MEDS: cefTRIAXone 2 GM in D5W 50 ML IV SCH (09:05)
[2016-09-18] MEDS: INSULIN LISPRO 100 UNIT/ML SC SCH ×3 (09:05→18:32)
--- NOTE | 2016-09-18 09:23 | SOAPPROG ---
SOAP Progress Note Assessment/Plan: Assessment: 61yo F s/p R TMA for osteomyelitis. Final path pending IV Ceftriaxone per ID When off antibiotics, will schedule for closure with [facility]. Will likely need vac x 1 month Acute blood loss anemia - stable Wound vac- changed this morning. Home care to change MWF Heel touch only RLE Dispo: ok to d/c from surgery standpoint with home care. F/u 1 week for wound check, dressing change and suture removal. Seen with Dr. Pastrana and Dr. Harper S: no complaints this morning. Pain controlled O: laying in bed, comfortable, NAD No increased wob RLE without erythema or edema. R TMA wound CDI without evidence of infection. Hemostasis achieved with pressure. Wound vac dressing reapplied R medial calf incision CDI, sutures intact 09/18/16 09:24 09/18/16 09:26 09/18/16 09:27 Objective: Vital Signs Temp Pulse Resp BP Pulse Ox 36.9 C 79 16 143/63 H 94 09/18/16 08:42 09/18/16 08:42 09/18/16 08:42 09/18/16 08:42 09/18/16 08:42 Laboratory Results 09/18/16 06:05 09/18/16 06:05 09/17/16 09/18/16 09/19/16 05:59 05:59 05:59 Intake Total 2050 3281 Output Total 900 1200 Balance 1150 2081 PT 14.4 SEC (12.0-15.0) 09/15/16 14:41 INR 1.13 (0.83-1.16) 09/15/16 14:41 ICD10 Worksheet Patient Problems: Problems Problem Status Onset Osteomyelitis Acute Acute kidney injury Acute Diabetes mellitus Acute Hypogammaglobulinemia Acute Hyponatremia Acute Invasive fungal sinusitis Acute Mucormycosis rhinosinusitis Acute Sinusitis Acute
--- NOTE | 2016-09-18 09:28 | PDIAF ---
- Diagnosis Diagnosis: streptococcus R foot 2nd, 3rd metatarsal OM Code Status: Full Code - Medication Management Discharge Medications: Medications to Continue on Transfer Albuterol Sulfate [Albuterol Inhaler Hfa] 1 - 2 puffs IH Q4H 03/20/15 [Last Taken 09/15/16] Folic Acid [Folic Acid 1 MG (*)] 1 mg PO DAILY 03/20/15 [Last Taken 09/15/16] Glimepiride [Amaryl 2 MG (*)] 2 mg PO DAILY 03/20/15 [Last Taken 09/14/16] Herbals/Supplements -Info Only 1 ea PO DAILY 03/20/15 [Last Taken Unknown] Omeprazole [Prilosec 20 mg] 20 mg PO DAILY 03/20/15 [Last Taken 09/15/16] Immun Glob G (IgG)/Gly/Iga 50+ [Gamunex-C 10 Gram/100 ml Vial] 60 gm IV .Q3WKS 03/21/15 [Last Taken 09/06/16] Insulin Glargine [Lantus 100 UNITS/ML (*)] 55 units SC DAILY #1 btl 04/05/15 [ Last Taken 09/15/16] Fluticasone/Salmeter 250/50Mcg [Advair 250/50 (*)] 1 puffs IH BID PRN 09/15/16 [ Last Taken 09/08/16] Losartan/Hydrochlorothiazide [Hyzaar 100-12.5 Tablet] 1 each PO DAILY 09/15/16 [ Last Taken 09/15/16] Long-Term Antibiotics: ceftriaxone 2gm IV daily Long-Term Antibiotic Stop Date: 09/29/16 Discharge Medications: Refer to the Discharge Home Medication list for PRN reason. PICC Care - Routine: Yes - Orders Services needed: Home Care, Registered Nurse, Physical Therapy Home Care Face to Face: I certify that this patient was under my care and that I had the required [id number] encounter meeting the encounter requirements on the discharge day. My findings support the fact that the patient is homebound as defined in CMS Chapter 7 Medicare Benefits Manual 30.1.1, The condition of the patient is such that there exists a normal inability to leave home and consequently, leaving home would require a considerable and taxing effort. Wound Care Instructions: change wound vac dressing MWF Sutures/[place] Site: Sutures R medial thigh will be removed 1 week from discharge at her follow-up appointment - Labs/Radiology CBC Date: 09/21/16 CMP Date: 09/21/16 CRP Date: 09/21/16 Call or Fax Lab and Imaging Results to: [email or web address] [phone] - Follow Up Care Current Providers and Referrals: Eliana Pastrana MD [Medical Doctor] - follow up in 1 week (call to make appointment) Lorri Harper MD [Medical Doctor] - 09/29/16 11:00 am Eliana Fowler PA [Primary Care Provider] - As per Instructions
--- NOTE | 2016-09-18 10:37 | PCMIDPN ---
Assessment/Plan: # Acute R Diabetic foot infection/cellulitis complicated by OM of 2nd and 3rd metatarsal,abscess s/p transmetatarsal amputation secondary to streptococcus dysgalactiae. Intraoperatively bone was hard. Wound health appearing today with granulation tissue. WBC normal today, no fever --2 weeks IV ceftriaxone, through 09/29/16, --dc today okay # IDDM: HgAIC is good at 6.9 # IgG deficiency : IgG level good # h/o Rhizopus R maxillary rhinosinusitis off therapy, no symptoms Meds ceftriaxone 2gm IV qD D#2 Subjective: feeling well no c/o, including diarrhea, rash Objective: Vital Signs Temp Pulse Resp BP Pulse Ox 36.9 C 79 16 143/63 H 94 09/18/16 08:42 09/18/16 08:42 09/18/16 08:42 09/18/16 08:42 09/18/16 08:42 Laboratory Results 09/18/16 06:05 09/18/16 06:05 09/17/16 09/18/16 09/19/16 05:59 05:59 05:59 Intake Total 2050 3281 Output Total 900 1200 Balance 1150 2081 ESR 105 MM/HR (0-30) H 09/15/16 14:41 C-Reactive Protein 30.0 mg/L (<10.0) H 09/15/16 14:41 - Physical Exam General Appearance: alert, no apparent distress EENT: No scleral icterus Respiratory: lungs clear Neck: supple Cardiac/Chest: regular rate, rhythm, systolic murmur Extremities: swelling (R ankle still w mild edema), other (R TMA wound, healthy appearing, granulation, pinpoint bleed blood vessels that resolved with pressure. No erythema or purulence) ICD10 Worksheet Patient Problems: Problems Problem Status Onset Osteomyelitis Acute Acute kidney injury Acute Diabetes mellitus Acute Hypogammaglobulinemia Acute Hyponatremia Acute Invasive fungal sinusitis Acute Mucormycosis rhinosinusitis Acute Sinusitis Acute
--- NOTE | 2016-09-18 11:52 | HOSPPROG ---
Hospitalist Progress Note Assessment/Plan: 61 yo F w CVID, well controlled DM2 here w osteomyelitis acute osteomyelitis of right foot, s/p transmetatarsal amputation on 09/15 On Unasyn per ID Post OP care per surgery F/U cultures wound swab w strep and gnr; not clear if this represents true pathogen Acute Blood loss Anemia in a pt with chronic anemia Transfused 1 unit Post Operative Hypotension in pt with hx of HTN Transfusion per above Hold BP meds 09/17- still off bp meds but no longer hypotensive follow IDDM2 continue current insulin regimen HbA1C is 6.9%. inpatient sugars at goal CVID IgG level high continue regular replacement schedule asthma Respiratory status stable. WIll provide neb prn hyperparathyroidism Ca is elevated and Phos is low, consistent with patient's diagnosis of hyperparathyroidism. Will cont to monitor levels and treat if significant deranged. hypomag: on protocol; improved dispo: home today > 30 minutes on dc Subjective: plan is for home today if wound vac can be set up Objective: Vital Signs Temp Pulse Resp BP Pulse Ox 36.9 C 79 16 143/63 H 94 09/18/16 08:42 09/18/16 08:42 09/18/16 08:42 09/18/16 08:42 09/18/16 08:42 Laboratory Results 09/18/16 06:05 09/18/16 06:05 09/17/16 09/18/16 09/19/16 05:59 05:59 05:59 Intake Total 2050 3281 Output Total 900 1200 Balance 1150 2081 PT 14.4 SEC (12.0-15.0) 09/15/16 14:41 INR 1.13 (0.83-1.16) 09/15/16 14:41 - Physical Exam Constitutional: no apparent distress, appears nourished Eyes: PERRL, anicteric sclera Ears, Nose, Mouth, Throat: moist mucous membranes, hearing normal Cardiovascular: regular rate and rhythym, no murmur, rub, or gallop Respiratory: no respiratory distress, no rales or rhonchi Gastrointestinal: normoactive bowel sounds, soft, non-tender abdomen Genitourinary: No mitchell in urethra Skin: warm, normal color Musculoskeletal: full muscle strength, no joint effusions Neurologic: AAOx3 Psychiatric: interacting appropriately ICD10 Worksheet Patient Problems: Problems Problem Status Onset Osteomyelitis Acute Acute kidney injury Acute Diabetes mellitus Acute Hypogammaglobulinemia Acute Hyponatremia Acute Invasive fungal sinusitis Acute Mucormycosis rhinosinusitis Acute Sinusitis Acute
--- NOTE | 2016-09-18 12:03 | GDS ---
[f rep st] DISCHARGE SUMMARY DISCHARGE DIAGNOSES: 1. Right foot osteomyelitis. 2. Type 2 diabetes. 3. Peripheral neuropathy. 4. 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 PROCEDURES DURING THIS ADMISSION: Gastrocnemius resection and transmetatarsal amputation of the rig ht foot. This occurred on the morning of the with Dr. Pastrana. HOSPITAL COURSE: Postoperative wound VAC was placed. Blood cultures were negative. Wound culture grew out E coli and strep dysgalactiae. She is treated with ceftriaxone. She is discharged home today with a wound VAC and PICC line. Plan for outpatient antibiotics. She has outpatient followup with Dr. Verena Pastrana. Wound cultures are pending. /[id number]/MODL
[2016-09-18] MEDS ORDERED: MAGNESIUM SULF 1 GM/DEXTROSE 100 ML IV ONE (13:34)
[2016-09-18] MEDS: HYDROCODONE/APAP 5/325 TAB PO PRN (19:57)
[2016-09-19 05:04] LABS: % IMMATURE GRANULYOCYTES 0.3 % (0.0-1.1); ABSOLUTE IMMATURE GRANULOCYTES 0.02 10^3/uL (0.00-0.10); ADD DIFF? NO; ADD MORPH? NO; ADD SCAN? NO; ATYPICAL LYMPHOCYTE FLAG 10 (0-99); FRAGMENT RBC FLAG 0 (0-99); HEMATOCRIT 24.7 % (38.0-47.0); HEMOGLOBIN 8.2 g/dL (12.6-16.3); LEFT SHIFT FLG 0 (0-99); LIPEMIA HEMOLYSIS FLAG 80 (0-99); MEAN CELL HEMOGLOBIN 29.2 pg (27.9-34.1); MEAN CELL HEMOGLOBIN CONCENTR. 33.2 g/dL (32.4-36.7); MEAN CELL VOLUME 87.9 fL (81.5-99.8); MEAN PLATELET VOLUME 9.5 fL (8.7-11.7); PLATELET CLUMPS FLAG 0 (0-99); PLATELET COUNT 168 10^3/uL (150-400); RED BLOOD CELL COUNT 2.81 10^6/uL (4.18-5.33); RED CELL DISTRIBUTION WIDTH 16.1 % (11.5-15.2)
[2016-09-19] MEDS ORDERED: MAGNESIUM SULF 1 GM/DEXTROSE 100 ML IV ONE (08:29)
[2016-09-19] MEDS: cefTRIAXone 2 GM in D5W 50 ML IV SCH (10:11)
[2016-09-19] MEDS: FOLIC ACID 1 MG TAB PO SCH (10:12)
[2016-09-19] MEDS: PANTOPRAZOLE SODIUM 40 MG TAB PO SCH (10:12)
[2016-09-19] MEDS: ENOXAPARIN 40 MG/0.4 ML SYR SC SCH (10:12)
[2016-09-19] MEDS: INSULIN GLARGINE 100 UNITS/ML SYRINGE SC SCH (10:12)
[2016-09-19] MEDS: INSULIN LISPRO 100 UNIT/ML SC SCH ×3 (12:27→18:50)
--- NOTE | 2016-09-19 13:35 | HOSPPROG ---
Hospitalist Progress Note Assessment/Plan: 61 yo F w CVID, well controlled DM2 here w osteomyelitis acute osteomyelitis of right foot, s/p transmetatarsal amputation on 09/15 On ceftriaxone Post OP care per surgery F/U cultures wound swab w strep and e coli; felt to be pathogen Acute Blood loss Anemia in a pt with chronic anemia Transfused 1 unit stable Post Operative Hypotension in pt with hx of HTN Transfusion per above Hold BP meds 09/17- still off bp meds but no longer hypotensive follow IDDM2 continue current insulin regimen HbA1C is 6.9%. inpatient sugars at goal CVID IgG level high continue regular replacement schedule asthma Respiratory status stable. WIll provide neb prn hyperparathyroidism Ca is elevated and Phos is low, consistent with patient's diagnosis of hyperparathyroidism. Will cont to monitor levels and treat if significant deranged. hypomag: on protocol; improved dc protocol hand edema: mild, b/l. follow dispo: await wound vac Subjective: not discharged as no insurance approval for wound vac Objective: Vital Signs Temp Pulse Resp BP Pulse Ox 36.6 C 78 16 145/78 H 95 09/19/16 08:13 09/19/16 08:13 09/19/16 08:13 09/19/16 08:13 09/19/16 08:13 Laboratory Results 09/19/16 04:35 09/18/16 06:05 09/18/16 09/19/16 09/20/16 05:59 05:59 05:59 Intake Total 3281 1019 Output Total 1200 800 Balance 2081 219 PT 14.4 SEC (12.0-15.0) 09/15/16 14:41 INR 1.13 (0.83-1.16) 09/15/16 14:41 - Physical Exam Constitutional: no apparent distress, appears nourished Eyes: PERRL, anicteric sclera Ears, Nose, Mouth, Throat: moist mucous membranes, hearing normal Cardiovascular: regular rate and rhythym, no murmur, rub, or gallop Respiratory: no respiratory distress, no rales or rhonchi Gastrointestinal: normoactive bowel sounds, soft, non-tender abdomen, no palpable masses Genitourinary: No mitchell in urethra Skin: warm, normal color Musculoskeletal: full muscle strength Neurologic: AAOx3 ICD10 Worksheet Patient Problems: Problems Problem Status Onset Osteomyelitis Acute Acute kidney injury Acute Diabetes mellitus Acute Hypogammaglobulinemia Acute Hyponatremia Acute Invasive fungal sinusitis Acute Mucormycosis rhinosinusitis Acute Sinusitis Acute
[2016-09-19] MEDS: HYDROCODONE/APAP 5/325 TAB PO PRN (13:56)
--- NOTE | 2016-09-19 18:17 | PCMIDPN ---
Assessment/Plan: # Acute R Diabetic foot infection/cellulitis complicated by OM of 2nd and 3rd metatarsal,abscess s/p transmetatarsal amputation secondary to streptococcus dysgalactiae. Intraoperatively bone was hard. Wound health appearing today with granulation tissue. 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 some maceration obvious on bottom edge of wound RUE PICC c/d/i no rash ICD10 Worksheet Patient Problems: Problems Problem Status Onset Osteomyelitis Acute Acute kidney injury Acute Diabetes mellitus Acute Hypogammaglobulinemia Acute Hyponatremia Acute Invasive fungal sinusitis Acute Mucormycosis rhinosinusitis Acute Sinusitis Acute
[2016-09-20] MEDS: FOLIC ACID 1 MG TAB PO SCH (09:45)
[2016-09-20] MEDS: ENOXAPARIN 40 MG/0.4 ML SYR SC SCH (09:45)
[2016-09-20] MEDS: PANTOPRAZOLE SODIUM 40 MG TAB PO SCH (09:46)
[2016-09-20] MEDS: INSULIN GLARGINE 100 UNITS/ML SYRINGE SC SCH (09:46)
[2016-09-20] MEDS: INSULIN LISPRO 100 UNIT/ML SC SCH ×3 (09:46→17:42)
[2016-09-20] MEDS: cefTRIAXone 2 GM in D5W 50 ML IV SCH (09:47)
--- NOTE | 2016-09-20 11:38 | HOSPPROG ---
Hospitalist Progress Note Assessment/Plan: 61 yo F w CVID, well controlled DM2 here w osteomyelitis acute osteomyelitis of right foot, s/p transmetatarsal amputation on 09/15 On ceftriaxone thru 09/29 Post OP care per surgery F/U cultures wound swab w strep and e coli; felt to be pathogen Acute Blood loss Anemia in a pt with chronic anemia Transfused 1 unit stable Post Operative Hypotension in pt with hx of HTN Transfusion per above Hold BP meds 09/17- still off bp meds but no longer hypotensive follow IDDM2 continue current insulin regimen HbA1C is 6.9%. inpatient sugars at goal CVID IgG level high continue regular replacement schedule asthma Respiratory status stable. WIll provide neb prn hyperparathyroidism Ca is elevated and Phos is low, consistent with patient's diagnosis of hyperparathyroidism. Will cont to monitor levels and treat if significant deranged. hypomag: on protocol; improved dc protocol hand edema: mild, b/l. follow dispo: await wound vac Subjective: awaiting wound vac. afebrile. L hand swelling is less Objective: Vital Signs Temp Pulse Resp BP Pulse Ox 36.6 C 79 16 129/68 H 93 09/20/16 08:00 09/20/16 08:00 09/20/16 08:00 09/20/16 08:00 09/20/16 08:00 Laboratory Results 09/19/16 04:35 09/18/16 06:05 09/19/16 09/20/16 09/21/16 05:59 05:59 05:59 Intake Total 1019 Output Total 800 350 Balance 219 -350 PT 14.4 SEC (12.0-15.0) 09/15/16 14:41 INR 1.13 (0.83-1.16) 09/15/16 14:41 - Physical Exam Constitutional: no apparent distress, appears nourished Eyes: PERRL, anicteric sclera Ears, Nose, Mouth, Throat: moist mucous membranes, hearing normal Cardiovascular: regular rate and rhythym, no murmur, rub, or gallop Respiratory: no respiratory distress, no rales or rhonchi Gastrointestinal: normoactive bowel sounds, soft, non-tender abdomen Genitourinary: no bladder fullness, No mitchell in urethra Skin: warm, normal color Musculoskeletal: full muscle strength, no muscle tenderness Neurologic: AAOx3 Psychiatric: interacting appropriately ICD10 Worksheet Patient Problems: Problems Problem Status Onset Osteomyelitis Acute Acute kidney injury Acute Diabetes mellitus Acute Hypogammaglobulinemia Acute Hyponatremia Acute Invasive fungal sinusitis Acute Mucormycosis rhinosinusitis Acute Sinusitis Acute
[2016-09-20] MEDS: HYDROCODONE/APAP 5/325 TAB PO PRN ×2 (15:44→21:17)
--- NOTE | 2016-09-20 17:25 | PCMIDPN ---
Assessment/Plan: # Acute R Diabetic foot infection/cellulitis complicated by OM of 2nd and 3rd metatarsal,abscess s/p transmetatarsal amputation secondary to streptococcus dysgalactiae. Intraoperatively bone was hard. Wound health appearing today with granulation tissue. 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 no pain in arm. Expected pain in R foot Objective: Vital Signs Temp Pulse Resp BP Pulse Ox 36.6 C 85 16 133/54 H 92 09/20/16 16:00 09/20/16 16:00 09/20/16 16:00 09/20/16 16:00 09/20/16 16:00 Laboratory Results 09/19/16 04:35 09/18/16 06:05 09/19/16 09/20/16 09/21/16 05:59 05:59 05:59 Intake Total 1019 Output Total 800 350 Balance 219 -350 ESR 105 MM/HR (0-30) H 09/15/16 14:41 C-Reactive Protein 30.0 mg/L (<10.0) H 09/15/16 14:41 Gen: nontoxic R foot wound vac in place no erythema. some maceration obvious on bottom edge of wound RUE PICC c/d/i - mild R hand/wrist swelling evidenced by tight hospital bands. No tenderness or detectable swelling R upper arm no rash ICD10 Worksheet Patient Problems: Problems Problem Status Onset Osteomyelitis Acute Acute kidney injury Acute Diabetes mellitus Acute Hypogammaglobulinemia Acute Hyponatremia Acute Invasive fungal sinusitis Acute Mucormycosis rhinosinusitis Acute Sinusitis Acute
[2016-09-21 06:28] VITALS: RESP 16
[2016-09-21 08:00] VITALS: BP 141/74; PULSE 81; TEMP 97.6; O2SAT 95
[2016-09-21] MEDS: INSULIN GLARGINE 100 UNITS/ML SYRINGE SC SCH (08:25)
[2016-09-21] MEDS: ENOXAPARIN 40 MG/0.4 ML SYR SC SCH (08:26)
[2016-09-21] MEDS: FOLIC ACID 1 MG TAB PO SCH (08:26)
[2016-09-21] MEDS: PANTOPRAZOLE SODIUM 40 MG TAB PO SCH (08:26)
[2016-09-21] MEDS: INSULIN LISPRO 100 UNIT/ML SC SCH (08:29)
[2016-09-21] MEDS: cefTRIAXone 2 GM in D5W 50 ML IV SCH (10:01)
--- NOTE | 2016-09-21 10:02 | HOSPPROG ---
Hospitalist Progress Note Assessment/Plan: 61 yo F w CVID, well controlled DM2 here w osteomyelitis acute osteomyelitis of right foot, s/p transmetatarsal amputation on 09/15 On ceftriaxone thru 09/29 Post OP care per surgery F/U cultures wound swab w strep and e coli; felt to be pathogen Acute Blood loss Anemia in a pt with chronic anemia Transfused 1 unit stable Post Operative Hypotension in pt with hx of HTN Transfusion per above Hold BP meds 09/17- still off bp meds but no longer hypotensive follow IDDM2 continue current insulin regimen HbA1C is 6.9%. inpatient sugars at goal CVID IgG level high continue regular replacement schedule asthma Respiratory status stable. WIll provide neb prn hyperparathyroidism Ca is elevated and Phos is low, consistent with patient's diagnosis of hyperparathyroidism. Will cont to monitor levels and treat if significant deranged. hypomag: on protocol; improved dc protocol hand edema: mild, b/l. follow dispo: await wound vac Subjective: anxiously awaiting approval of wound vac. hands less swollen Objective: Vital Signs Temp Pulse Resp BP Pulse Ox 36.4 C 81 16 141/74 H 95 09/21/16 07:55 09/21/16 07:55 09/21/16 07:55 09/21/16 07:55 09/21/16 07:55 Microbiology 09/15/16 17:15 Blood Culture - Final Blood Laboratory Results 09/19/16 04:35 09/18/16 06:05 09/20/16 09/21/16 09/22/16 05:59 05:59 05:59 Intake Total 100 Output Total 350 200 950 Balance -350 -100 -950 PT 14.4 SEC (12.0-15.0) 09/15/16 14:41 INR 1.13 (0.83-1.16) 09/15/16 14:41 - Physical Exam Constitutional: no apparent distress, appears nourished Eyes: PERRL, anicteric sclera Ears, Nose, Mouth, Throat: moist mucous membranes, hearing normal Cardiovascular: regular rate and rhythym, no murmur, rub, or gallop Respiratory: no respiratory distress, no rales or rhonchi Gastrointestinal: normoactive bowel sounds, soft, non-tender abdomen Genitourinary: No mitchell in urethra Skin: warm, normal color Musculoskeletal: full muscle strength, no muscle tenderness Neurologic: AAOx3, sensation intact bilaterally Psychiatric: interacting appropriately, not anxious Lymph, Heme, Immunologic: no cervical LAD ICD10 Worksheet Patient Problems: Problems Problem Status Onset Osteomyelitis Acute Acute kidney injury Acute Diabetes mellitus Acute Hypogammaglobulinemia Acute Hyponatremia Acute Invasive fungal sinusitis Acute Mucormycosis rhinosinusitis Acute Sinusitis Acute
--- NOTE | 2016-09-21 10:09 | SOAPPROG ---
SOAP Progress Note Assessment/Plan: Assessment: 61yo F s/p R TMA for osteomyelitis. IV Ceftriaxone per ID When off antibiotics, will schedule for closure with STSG. Will likely need vac x 1 month Acute blood loss anemia - stable Wound vac- changed this morning. Home care to change MWF Heel touch only RLE Dispo: waiting for wound vac approval. F/u 1 week for wound check, dressing change and suture removal. S: no complaints O: sitting upright in bed, comfortable, NAD No increased wob RLE without erythema or edema. R TMA wound CDI without evidence of infection. Wound vac dressing reapplied R medial calf incision CDI Objective: Vital Signs Temp Pulse Resp BP Pulse Ox 36.4 C 81 16 141/74 H 95 09/21/16 07:55 09/21/16 07:55 09/21/16 07:55 09/21/16 07:55 09/21/16 07:55 Microbiology 09/15/16 17:15 Blood Culture - Final Blood Laboratory Results 09/19/16 04:35 09/18/16 06:05 09/20/16 09/21/16 09/22/16 05:59 05:59 05:59 Intake Total 100 Output Total 350 200 950 Balance -350 -100 -950 PT 14.4 SEC (12.0-15.0) 09/15/16 14:41 INR 1.13 (0.83-1.16) 09/15/16 14:41 ICD10 Worksheet Patient Problems: Problems Problem Status Onset Osteomyelitis Acute Acute kidney injury Acute Diabetes mellitus Acute Hypogammaglobulinemia Acute Hyponatremia Acute Invasive fungal sinusitis Acute Mucormycosis rhinosinusitis Acute Sinusitis Acute
--- NOTE | 2016-09-21 10:37 | PDIAF ---
- Diagnosis Diagnosis: streptococcus R foot 2nd, 3rd metatarsal OM Code Status: Full Code - Medication Management Discharge Medications: Medications to Continue on Transfer Albuterol Sulfate [Albuterol Inhaler Hfa] 1 - 2 puffs IH Q4H 03/20/15 [Last Taken 09/15/16] Folic Acid [Folic Acid 1 MG (*)] 1 mg PO DAILY 03/20/15 [Last Taken 09/15/16] Herbals/Supplements -Info Only 1 ea PO DAILY 03/20/15 [Last Taken Unknown] Omeprazole [Prilosec 20 mg] 20 mg PO DAILY 03/20/15 [Last Taken 09/15/16] Immun Glob G (IgG)/Gly/Iga 50+ [Gamunex-C 10 Gram/100 ml Vial] 60 gm IV .Q3WKS 03/21/15 [Last Taken 09/06/16] Insulin Glargine [Lantus 100 UNITS/ML (*)] 55 units SC DAILY #1 btl 04/05/15 [ Last Taken 09/15/16] Fluticasone/Salmeter 250/50Mcg [Advair 250/50 (*)] 1 puffs IH BID PRN 09/15/16 [ Last Taken 09/08/16] Losartan/Hydrochlorothiazide [Hyzaar 100-12.5 Tablet] 1 each PO DAILY 09/15/16 [ Last Taken 09/15/16] Glimepiride [Amaryl 2 MG (*)] 2 mg PO DAILY #30 tab 09/18/16 [Last Taken Unknown ] cefTRIAXone [Rocephin] 2 gm IV DAILY #0 vial 09/18/16 [Last Taken Unknown] oxyCODONE IR [Oxycodone Ir (*)] 5 - 10 mg PO Q4 PRN #24 tab 09/18/16 [Last Taken Unknown] Fdc Antibiotics: ceftriaxone 2gm IV daily Chyron Operator Antibiotic Stop Date: 09/29/16 Discharge Medications: Refer to the Discharge Home Medication list for PRN reason. PICC Care - Routine: Yes - Orders Services needed: Home Care, Registered Nurse, Physical Therapy Home Care Face to Face: I certify that this patient was under my care and that I had the required [id number] encounter meeting the encounter requirements on the discharge day. My findings support the fact that the patient is homebound as defined in CMS Chapter 7 Medicare Benefits Manual 30.1.1, The condition of the patient is such that there exists a normal inability to leave home and consequently, leaving home would require a considerable and taxing effort. Wound Care Instructions: change wound vac dressing MWF Sutures/Nithin Site: Sutures R medial thigh will be removed 1 week from discharge at her follow-up appointment - Labs/Radiology CBC Date: 09/21/16 CMP Date: 09/21/16 CRP Date: 09/21/16 Call or Fax Lab and Imaging Results to: gisela [phone] - Follow Up Care Current Providers and Referrals: Eliana Pastrana MD [Medical Doctor] - follow up in 1 week (call to make appointment) Lorri Harper MD [Medical Doctor] - 09/29/16 11:00 am Eliana Fowler PA [Primary Care Provider] - As per Instructions
--- NOTE | 2016-09-21 17:06 | GDS ---
[f rep st] DISCHARGE SUMMARY DISCHARGE DIAGNOSES: 1. Common variable immune deficiency. 2. Right foot osteomyelitis, status post resection. 3. Type 2 diabetes. 4. Peripheral neuropathy. Please see discharge summary dated 09/18/2016, by Dr. Manjinder Osman. The patient was unable to be d ischarged in order to procure a home wound VAC over the weekend. That procurement has occurred. The patient is discharged home with home RN, PT, and home care. She will complete a course of ceftriaxon e through 09/29. She will follow up with ID in the wound clinic. /[id number]/MODL
[2016-09-27] MEDS ORDERED: IMMUN GLOB IV SCH (09:00)
[2016-09-27] MEDS ORDERED: GLY IV SCH (09:00)
[2016-09-27] MEDS ORDERED: IGA IV SCH (09:00)
== END 2016-09-21 11:45 | disposition home health service (06) | DRG 617 ==
LOC: F1N 18:53
PROVIDERS: ADMIT Internal Medicine; ATTEND Internal Medicine
DX: E11.69 Type 2 diabetes mellitus with other specified complication (principal); M86.171 Other acute osteomyelitis, right ankle and foot; D83.9 Common variable immunodeficiency, unspecified; D62 Acute posthemorrhagic anemia; I95.81 Postprocedural hypotension; E11.40 Type 2 diabetes mellitus with diabetic neuropathy, unspecified; E11.65 Type 2 diabetes mellitus with hyperglycemia; I10 Essential (primary) hypertension; D53.9 Nutritional anemia, unspecified; E21.3 Hyperparathyroidism, unspecified; J45.909 Unspecified asthma, uncomplicated; Z79.4 Long term (current) use of insulin; Z87.891 Personal history of nicotine dependence; Z95.1 Presence of aortocoronary bypass graft; B96.20 Unspecified Escherichia coli [E. coli] as the cause of diseases classified elsewhere; B95.4 Other streptococcus as the cause of diseases classified elsewhere
CPT/HCPCS: 82784-90; 96365; 97116-GP; 97161-GP; A9585; C1751; J0295; J0696; J1170; J1650; J1815; J2250; J2704; J2997; J3010; J3475; P9040

== ENCOUNTER 2016-11-06 08:06 | Day surgery (SDC) | payer OTHER ==
[2016-11-06] MEDS ORDERED: BUPIVACAINE 0.5% 30 ML SDV ONE (08:32)
[2016-11-06] MEDS ORDERED: THROMBIN (BOVINE) 20,000 UNIT SPRAY TP ONE (08:32)
[2016-11-06] MEDS ORDERED: MINERAL OIL 10 ML VIAL ONE ×2 (08:32→08:58)
[2016-11-06] MEDS ORDERED: LR 1,000 ML IV ONE (08:59)
[2016-11-06] MEDS ORDERED: LIDOCAINE 1% 5 ML SDV ID PRN (08:59)
[2016-11-06] MEDS ORDERED: ceFAZolin 2 GM/DEXTROSE 100 ML IV ONE (09:00)
[2016-11-06] MEDS ORDERED: LIDOCAINE 1% 2 ML INJ ONE (09:02)
[2016-11-06] MEDS ORDERED: MIDAZOLAM 2 MG/2 ML VIAL ONE (09:19)
[2016-11-06] MEDS ORDERED: fentaNYL 100 MCG/2 ML INJ ONE ×2 (09:29→09:59)
[2016-11-06] MEDS ORDERED: PROPOFOL 200 MG/20 ML VIAL ONE (09:29)
[2016-11-06] MEDS ORDERED: LIDOCAINE 2% 5 ML SDV ONE (09:36)
[2016-11-06] MEDS ORDERED: ALBUTEROL HFA ANES ONLY 200 PUFFS/8.5 GM MDI IH ONE (09:36)
[2016-11-06] MEDS ORDERED: ONDANSETRON 4 MG/2 ML VIAL ONE (09:37)
[2016-11-06] MEDS ORDERED: DEXAMETHASONE 4 MG/ML VIAL ONE (09:37)
[2016-11-06] MEDS ORDERED: ROCURONIUM 50 MG/5 ML VIAL ONE (09:37)
[2016-11-06 09:45] LABS: ANION GAP 9 mEq/L (8-16); CALCIUM 10.6 mg/dL (8.5-10.4); CARBON DIOXIDE 25 mEq/l (22-31); CHLORIDE 106 mEq/L (97-110); CREATININE 0.9 mg/dL (0.6-1.0); GLOMERULAR FILTRATION RATE > 60; GLUCOSE 197 mg/dL (70-100); POTASSIUM 4.1 mEq/L (3.5-5.2); SODIUM 140 mEq/L (134-144)
[2016-11-06] MEDS ORDERED: SUGAMMADEX SODIUM 200 MG/2 ML VIAL IVP ONE (09:56)
[2016-11-06] MEDS ORDERED: HYDROCODONE/APAP 5/325 TAB ONE (10:40)
--- NOTE | 2016-11-06 11:29 | GOP ---
[f rep st] OPERATIVE REPORT DATE OF OPERATION: 11/06/2016 SURGEON: Eliana Pastrana MD [employer] MANAGER: Dania Toth PA-C. ANESTHESIA: General. ANESTHESIOLOGIST: Byron Cabrera MD PREOPERATIVE DIAGNOSIS: History of osteomyelitis status post transmetatarsal amputation. POSTOPERATIVE DIAGNOSIS: History of osteomyelitis status post transmetatarsal amputation. PROCEDURE PERFORMED: Split-thickness skin grafting. FINDINGS: The wound measured 3.3 x 6.3 x 0 with healthy granulation tissue at the base. SPECIMENS: None. ESTIMATED BLOOD LOSS: 10 cc. INDICATIONS: The patient is a 61-year-old woman who presented with osteomyelitis. I took her to [facility] operating room for transmetatarsal amputation. Due to the severe soft tissue infection, I was kellie ble to perform a flap. The wound has been granulating nicely with a wound VAC. She presents for sp lit-thickness skin grafting. DESCRIPTION OF PROCEDURE: The patient was brought into the operating room, placed supine on the tab le, and general anesthesia was administered. Her right foot was prepped and draped in the usual jorge rile fashion. I obtained a split-thickness skin graft from the upper thigh measuring 1/12,000 inch. I hand pie-crusted this and placed this on the wound. It was stapled into place. Adaptic Touch a nd wound VAC were placed over the wound. An epinephrine soaked sponge was placed over the thigh. H emostasis was achieved with electrocautery, Sanjuana, followed by Mepilex transfer, and a Tegaderm was placed on the thigh. She was awakened in the operating room, extubated, transferred to PACU in sta ble condition. /[id number]/MODL
== END 2016-11-06 12:00 | disposition home or self-care (01) ==
LOC: FSGY 08:06
PROVIDERS: ATTEND Surgery
PROC: 0HBHXZZ Excision of Right Upper Leg Skin, External Approach (ICD-10-PCS; principal; 2016-11-06 09:30)
PROC: 0HRMX74 Replacement of Right Foot Skin with Autologous Tissue Substitute, Partial Thickness, External Approach (ICD-10-PCS; principal; 2016-11-06 09:30)
DX: M86.171 Other acute osteomyelitis, right ankle and foot (principal); L97.519 Non-pressure chronic ulcer of other part of right foot with unspecified severity; Z89.421 Acquired absence of other right toe(s); Z79.01 Long term (current) use of anticoagulants; E11.9 Type 2 diabetes mellitus without complications; K21.9 Gastro-esophageal reflux disease without esophagitis; E78.5 Hyperlipidemia, unspecified; E21.3 Hyperparathyroidism, unspecified; I10 Essential (primary) hypertension; E87.6 Hypokalemia; Z79.84 Long term (current) use of oral hypoglycemic drugs
CPT/HCPCS: J0171; J0690; J1100; J2250; J2405; J2704; J3010

== ENCOUNTER → 2017-02-06 | Outpatient (CLI) | payer OTHER | LOC: CIMAGING 09:23 | PROVIDERS: ATTEND Allergy & Immunology Allergy | DX: R09.89 Other specified symptoms and signs involving the circulatory and respiratory systems (principal) | CPT/HCPCS: 71020-PO ==

== ENCOUNTER → 2018-09-29 | Outpatient (CLI) | payer OTHER | LOC: CIMAGING 07:59 | PROVIDERS: ATTEND Physician Assistant Medical | DX: K80.20 Calculus of gallbladder without cholecystitis without obstruction (principal); K82.9 Disease of gallbladder, unspecified; K83.8 Other specified diseases of biliary tract; K75.9 Inflammatory liver disease, unspecified | CPT/HCPCS: 76705-PO ==

== ENCOUNTER 2018-10-25 06:13 | Observation (INO) | payer OTHER ==
[2018-10-25] MEDS ORDERED: BUPIVACAINE 0.5% 30 ML SDV ONE (06:25)
[2018-10-25] MEDS ORDERED: ceFAZolin 2 GM/DEXTROSE 100 ML IV ONE (06:26)
[2018-10-25] MEDS ORDERED: LR 1,000 ML IV ONE ×2 (06:30→14:21)
[2018-10-25] MEDS ORDERED: LIDOCAINE 1% 2 ML INJ ID PRN (06:30)
[2018-10-25] MEDS ORDERED: MIDAZOLAM 2 MG/2 ML VIAL IVP ONE ×2 (08:03→14:58)
[2018-10-25] MEDS ORDERED: LIDOCAINE 2% 100 MG/5 ML SYR ONE (08:44)
[2018-10-25] MEDS ORDERED: ROCURONIUM 100 MG/10 ML VIAL ONE ×2 (08:44→15:07)
[2018-10-25] MEDS ORDERED: fentaNYL 100 MCG/2 ML INJ ONE ×4 (08:44→15:08)
[2018-10-25] MEDS ORDERED: DEXAMETHASONE 4 MG/ML VIAL ONE (08:44)
[2018-10-25] MEDS ORDERED: PROPOFOL 200 MG/20 ML VIAL ONE ×2 (08:44→15:08)
[2018-10-25] MEDS ORDERED: IOTHALAMATE MEG (CONRAY) 50 ML VIAL IV ONE ×2 (09:25→15:04)
[2018-10-25] MEDS ORDERED: GLUCAGON HCL 1 MG VIAL ONE ×2 (09:54→15:12)
[2018-10-25] MEDS ORDERED: GLUCAGON HCL 1 MG VIAL IVP ONE (10:00)
[2018-10-25] MEDS ORDERED: LR 500 ML IV PRN ×2 (10:03→16:08)
[2018-10-25] MEDS ORDERED: fentaNYL 100 MCG/2 ML INJ IVP PRN ×2 (10:03→16:08)
[2018-10-25] MEDS ORDERED: oxyCODONE IR 5 MG TAB PO PRN (10:03)
[2018-10-25] MEDS ORDERED: ACETAMINOPHEN 500 MG TAB PO PRN (10:03)
[2018-10-25] MEDS ORDERED: PHENYLEPHRINE HCL 100 MCG/ML SYR IVP PRN (10:03)
[2018-10-25] MEDS ORDERED: MEPERIDINE 25 MG/0.5 ML AMP IVP PRN (10:03)
[2018-10-25] MEDS ORDERED: NALOXONE HCL 0.4 MG/ML INJ IVP PRN ×2 (10:03→16:08)
[2018-10-25] MEDS ORDERED: DIAZEPAM 10 MG/2 ML SYR IVP PRN (10:03)
[2018-10-25] MEDS ORDERED: HYDROmorphONE/DILAUDID 1 MG/ML INJ IVP PRN (10:03)
[2018-10-25] MEDS ORDERED: ONDANSETRON 4 MG/2 ML VIAL ONE ×2 (10:12→15:07)
[2018-10-25] MEDS ORDERED: KETOROLAC 30 MG/1 ML SDV ONE (10:12)
[2018-10-25] MEDS ORDERED: METOPROLOL TARTRATE 5 MG/5 ML INJ ONE (10:12)
[2018-10-25] MEDS ORDERED: SUGAMMADEX SODIUM 200 MG/2 ML VIAL IVP ONE ×2 (10:12→15:48)
[2018-10-25] MEDS ORDERED: PROMETHAZINE HCL 25 MG/ML INJ ONE (10:27)
[2018-10-25] MEDS: PROMETHAZINE HCL 25 MG/ML INJ IVP PRN ×2 (10:34→10:50)
[2018-10-25] MEDS ORDERED: ONDANSETRON 4 MG/2 ML VIAL IVP PRN (11:22)
[2018-10-25] MEDS ORDERED: HYDROCODONE/APAP 5/325 TAB PO PRN (11:22)
[2018-10-25] MEDS ORDERED: diphenhydrAMINE 25 MG CAP PO PRN (11:22)
[2018-10-25] MEDS ORDERED: ONDANSETRON DISINTEGRATING 4 MG TAB PO PRN (11:22)
[2018-10-25] MEDS: HYDROmorphONE/DILAUDID 1 MG/ML INJ IVP PRN (13:05)
[2018-10-25] MEDS ORDERED: INDOMETHACIN 50 MG SUPP PR ONE ×2 (15:04→15:33)
[2018-10-25] MEDS ORDERED: LIDOCAINE 2% 2 ML INJ ONE (15:07)
[2018-10-25] MEDS ORDERED: PROMETHAZINE HCL 25 MG/ML INJ IVP PRN (16:08)
[2018-10-26] MEDS: HYDROmorphONE/DILAUDID 1 MG/ML INJ IVP PRN (00:20)
[2018-10-26] MEDS ORDERED: D50W 25 GM/50 ML SYR IVP PRN (08:08)
[2018-10-26] MEDS ORDERED: FLUTICASONE/SALMETER 250/50MCG DISKUS IH PRN (08:36)
[2018-10-26] MEDS ORDERED: ALBUTEROL 60 PUFFS/8 GM MDI IH PRN (08:36)
[2018-10-26] MEDS ORDERED: LOSARTAN/HCTZ 50/12.5 1 TAB PO SCH (09:00)
[2018-10-26] MEDS ORDERED: FOLIC ACID 1 MG TAB PO SCH (09:00)
[2018-10-26] MEDS ORDERED: PANTOPRAZOLE SODIUM 40 MG TAB PO SCH (09:00)
[2018-10-26] MEDS ORDERED: GLIMEPIRIDE 2 MG TAB PO SCH (09:00)
[2018-10-26] MEDS ORDERED: LOSARTAN POTASSIUM 50 MG TAB PO SCH (09:00)
[2018-10-26] MEDS ORDERED: INSULIN GLARGINE HUM REC ANLOG 50 UNIT SQ SCH (09:00)
[2018-10-26] MEDS ORDERED: [UNRECOGNIZED DRUG - OTHER] SQ SCH (09:00)
[2018-10-26] MEDS ORDERED: IOPAMIDOL (ISOVUE-300) 100 ML BTL ONE (10:10)
[2018-10-26] MEDS ORDERED: INSULIN LISPRO 100 UNIT/ML SC SCH (12:00)
[2018-10-26] MEDS ORDERED: INSULIN LISPRO 5 UNIT SQ SCH (12:00)
== END 2018-10-26 17:21 | disposition home or self-care (01) ==
DX: K80.42 Calculus of bile duct with acute cholecystitis without obstruction (principal); E11.9 Type 2 diabetes mellitus without complications; G47.33 Obstructive sleep apnea (adult) (pediatric); E78.5 Hyperlipidemia, unspecified; I10 Essential (primary) hypertension; Z89.431 Acquired absence of right foot
CPT/HCPCS: 43264; 47563; 74178; 76000; 97116; 97161; G0378